=== PATIENT | male | born 1990 | race Caucasian/White ===

== ENCOUNTER 2017-08-04 20:05 | Emergency (ER) | payer SELFPAY ==
[~2017-08-04] VITALS: Ht 172.7 cm; Wt 68.2 kg
[2017-08-04 20:09] VITALS: BP 145/81; PULSE 82; RESP 16; TEMP 98.2; O2SAT 97
--- NOTE | 2017-08-04 20:47 | RADRPT ---
EXAM DATE/TIME: 08/04/2017 20:36 [place] COMPARISON: No previous studies available for comparison. INDICATIONS : Left sided chest pain for 3 days MEDICAL HISTORY : None. SURGICAL HISTORY : None. ENCOUNTER: Initial ACUITY: 3 days PAIN SCORE: 7/10 LOCATION: Left chest FINDINGS: The lungs are clear without infiltrate, nodule, or mass. There is no appreciable pleural effusion fo r technique. Heart and mediastinum are unremarkable. CONCLUSION: No acute cardiopulmonary disease. Quinten Jones MD on August 04, 2017 at 20:45 Board Certified Radiologist. This report was verified electronically.
--- NOTE | 2017-08-04 22:04 | PD ---
HPI Chief Complaint: Chest Pain Time Seen by Provider: 21:54 Travel History International Travel<30 days: No Contact w/Intl Traveler<30days: No Traveled to known affect area: No History of Present Illness HPI Patient 26-year-old male presents emergency department left-sided chest pain a few days after lifting a heavy pallet. He states his pain is intermittent, cannot really determine if there is any alleviating or exacerbating factors, he thinks that he may have pulled a muscle but wanted to be checked out to make sure wasn't anything more serious. The patient is a nonsmoker no drug use, no personal no family history of heart normal lung disease. He's been a while since she's had any workup. Does not have a history of high blood pressure high cholesterol diabetes. States the pain is sharp, left-sided this chest, no radiation, intermittent, context as above. PFSH Past Medical History Medical History: Denies Significant Hx Tetanus Vaccination: Unknown Influenza Vaccination: No Past Surgical History Surgical History: No Previous Surgery Social History Alcohol Use: Yes (OCCASSIONAL) Tobacco Use: No Substance Use: No Allergies-Medications Reported Meds & Prescriptions Reported Meds & Active Scripts Active No Active Prescriptions or Reported Medications Review of Systems Except as stated in HPI: all other systems reviewed are Neg Physical Exam Narrative GENERAL: Well-developed well-nourished, healthy physique in no obvious distress. SKIN: Focused skin assessment warm/dry. HEAD: Atraumatic. Normocephalic. EYES: Pupils equal and round. No scleral icterus. No injection or drainage. ENT: No nasal bleeding or discharge. Mucous membranes pink and moist. NECK: Trachea midline. No JVD. CARDIOVASCULAR: Regular rate and rhythm. No murmur appreciated. 2+ bilateral equal pulses in all 4 extremity's. RESPIRATORY: No accessory muscle use. Clear to auscultation. Breath sounds equal bilaterally. GASTROINTESTINAL: Abdomen soft, non-tender, nondistended. Hepatic and splenic margins not palpable. MUSCULOSKELETAL: No obvious deformities. No clubbing. No cyanosis. No edema. Patient does have some reproducible pain to his chest wall when he attempts to flex his pectoralis muscle against resistance. There is some minimal tenderness along the sternal origin of the pectoralis muscle. NEUROLOGICAL: Awake and alert. No obvious cranial nerve deficits. Motor grossly within normal limits. Normal speech. PSYCHIATRIC: Appropriate mood and affect; insight and judgment normal. Data Data Last Documented VS Vital Signs Date Time Temp Pulse Resp B/P (MAP) Pulse Ox O2 Delivery O2 Flow Rate FiO2 08/04/17 22:14 08/04/17 20:09 98.2 82 16 97 Orders Orders Electrocardiogram (08/04/17 ) Chest, Pa & Lat (08/04/17 ) Ed Discharge Order (08/04/17 22:03) MDM Medical Decision Making Medical Screen Exam Complete: Yes Emergency Medical Condition: Yes Interpretation(s) EKG shows normal sinus rhythm normal axis normal R-wave progression. No concerning ST segment changes intervals within normal limits. This is a normal EKG. Differential Diagnosis Atypical chest pain, muscle strain, chest wall pain, pulmonary embolism excluded by wells and PERC criteria. Narrative Course Patient roomed in emergency department, highly atypical presentation and no risk factors for ACS. EKG obtained and chest x-ray are both negative. The patient was counseled on symptomatic management and return to ED criteria as well as follow-up with a primary care physician. He is stable for discharge. Diagnosis Primary Impression: Pectoralis muscle strain Qualified Codes: S29.011A - Strain of muscle and tendon of front wall of thorax, initial encounter Patient Instructions: General Instructions, RICE Therapy (ED) Additional Instructions: Ibuprofen 200mg every 8 hours as needed for pain. You can take this for two weeks. Scripts No Active Prescriptions or Reported Meds Disposition: 01 DISCHARGE HOME Condition: Stable Tin Armenta MD Aug 04, 2017 22:04
--- NOTE | 2017-08-06 23:34 | EKG ---
Date Performed: 08/04/2017 Time Performed: 21:09:59 PTAGE: 26 years EKG: Sinus rhythm POSSIBLE RIGHT VENTRICULAR CONDUCTION DELAY BORDERLINE ECG NO PREVIOUS TRACING DOCTOR: Sweetie Salazar Interpretating Date/Time 08/06/2017 23:31:55
== END 2017-08-04 22:18 | disposition home or self-care (01) ==
LOC: NEPD 20:05
DX: S29.011A Strain of muscle and tendon of front wall of thorax, initial encounter (principal); X50.0XXA Overexertion from strenuous movement or load, initial encounter
CPT/HCPCS: 71046; 93005; 99284